=== PATIENT | female | born 1960 | race Caucasian/White ===

== ENCOUNTER → 2023-12-05 14:11 | Outpatient (REF) | payer MEDICARE, OTHER, SELFPAY | LOC: WDC 14:11 | PROVIDERS: ATTENDING PHYSICIAN Obstetrics & Gynecology; FAMILY PHYSICIAN Internal Medicine | DX: Z78.0 Asymptomatic menopausal state (principal); Z12.31 Encounter for screening mammogram for malignant neoplasm of breast | CPT/HCPCS: 77063; 77067; 77080 ==

== ENCOUNTER 2024-10-08 05:58 | Day surgery (SDC) | payer MEDICARE, OTHER, SELFPAY ==
[2024-10-08] VITALS (14 sets, daily range): BP systolic 90–143; BP diastolic 50–75; BMI 21.3
[2024-10-08] MEDS: HEPARIN 5000 UNITS SC (06:37)
[2024-10-08] MEDS: Pyridium 200 MG PO (06:38)
[2024-10-08] MEDS: NORMOSOL-R/PLASMALYTE-A 1000 IV (06:53)
[2024-10-08 07:10] LABS: Hematocrit 38.1 % (37.0-47.0); Hemoglobin 12.5 g/dL (12.0-16.0); Mean Corp Hgb Conc. 32.8 g/dL (33.0-37.0); Mean Corpuscular Hgb 31.3 pg (27.0-31.0); Mean Corpuscular Volume 95.5 fL (81.0-99.0); Mean Platelet Volume 10.1 fL (7.4-10.4); Platelet Count 216 10^3/uL (130-400); Red Blood Cell Count 3.99 10^6/uL (4.20-5.40); White Blood Cell Count 4.8 10^3/uL (4.8-10.8)
[2024-10-08 07:53] LABS: Blood Urea Nitrogen 18 mg/dl (7-17); Calcium 9.3 mg/dl (8.4-10.2); Carbon Dioxide 30 mmol/L (22-30); Chloride 103 mmol/L (98-107); Estimated Creatinine Clearance 86 ml/min; Glucose 93 mg/dl (70-99); Potassium 4.2 mmol/L (3.5-5.1); Sodium 140 mmol/L (135-145); eGFR > 60.00
[2024-10-08] MEDS: DILAUDID 0.5 MG IV ×2 (10:15→10:29)
[2024-10-08] MEDS: TYLENOL 650 MG PO (12:54)
== END 2024-10-08 14:33 | disposition home or self-care (01) ==
LOC: SDS 05:58
PROVIDERS: ATTENDING PHYSICIAN Obstetrics & Gynecology
DX: N81.11 Cystocele, midline (principal); N39.3 Stress incontinence (female) (male); N95.8 Other specified menopausal and perimenopausal disorders; N36.41 Hypermobility of urethra; N87.0 Mild cervical dysplasia; N84.0 Polyp of corpus uteri; D25.1 Intramural leiomyoma of uterus; D25.0 Submucous leiomyoma of uterus; N83.8 Other noninflammatory disorders of ovary, fallopian tube and broad ligament
CPT/HCPCS: 57425; 58571; 57288; 57250; 88305; 80048; 85027; 86850; 86900; 86901; 93005; C1763; C1771

== ENCOUNTER → 2024-12-10 11:56 | Outpatient (REF) | payer MEDICARE, OTHER, SELFPAY | LOC: WDC 11:56 | PROVIDERS: ATTENDING PHYSICIAN Obstetrics & Gynecology; FAMILY PHYSICIAN Internal Medicine | DX: Z12.31 Encounter for screening mammogram for malignant neoplasm of breast (principal) | CPT/HCPCS: 77063; 77067 ==